=== PATIENT | male | born 1980 | race Caucasian/White ===

== ENCOUNTER 2020-05-14 11:19 | Outpatient (REF) | payer BC, SELFPAY | END 2020-05-14 11:20 | disposition home or self-care (01) | LOC: HO.LAB 11:19 | PROVIDERS: Visit Provider Internal Medicine | DX: Z20.828 Contact with and (suspected) exposure to other viral communicable diseases (principal) | CPT/HCPCS: U0003 ==

== ENCOUNTER 2020-07-02 12:30 | Emergency (ER) | payer OTHER, BC, SELFPAY ==
[2020-07-02 12:45] VITALS: BP 168/100; BP 180/100; PULSE 81; PULSE 90; RESP 18; TEMP 36.8; O2SAT 96; BMI 30.2
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
--- NOTE | 2020-07-02 13:11 | CT_ITS ---
EXAMINATION: CT BRAIN AND CT CERVICAL SPINE WITHOUT CONTRAST CLINICAL INFORMATION: Head injury. Headache COMPARISON: None TECHNIQUE: 5 mm thin axial and reformatted 2 mm thin sagittal coronal images of brain were obtained. Subsequently axial 3 mm thin and reformatted 2 mm thin sagittal and coronal images of cervical spine were obtained. DL [id number] FINDINGS: Brain: There is no acute intra-axial, extra-axial bleed, masses or midline shift. There is no acute infarction in evolution. The lateral ventricles are symmetrical in size and configuration without enlargement. The gonzalez to white matter differentiation is maintained. Bone windows reveal no calvarial abnormality. There is no scalp soft tissue abnormality. There is mild mucoperiosteal thickening bilateral posterior ethmoid and bilateral maxillary sinuses. Bilateral mastoid air cells are well-aerated. Cervical spine: Clinical diagnosis the vertebral heights, alignment and disc heights are normal. No visible acute fracture, dislocation or subluxation seen. The craniovertebral junction and the C1-C2 alignment is normal. The prevertebral and paravertebral soft tissues are normal. The airway is widely patent. The thyroid lobes are symmetrical. Bilateral submandibular and the parotid glands are symmetrical. The lung apices are clear. CT/CT cervical spine wo con IMPRESSION: No acute intracranial process seen. Mild straightening of cervical lordosis. No visible acute fracture, dislocation or subluxation seen.
[2020-07-02 14:00] VITALS: BP 138/84; PULSE 79; RESP 14; TEMP 36.8; O2SAT 94
[2020-07-02] MEDS: predniSONE 10 MG TABLET 50 MG PO (14:43)
[2020-07-02] MEDS: Fluticasone Propionate Nasal 16 GM SPRAY 2 SPRAY NOSTRIL-B (14:44)
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
[2020-07-02 16:00] VITALS: BP 157/101; PULSE 67; RESP 16; TEMP 36.6; O2SAT 3
[2020-07-02 16:07] LABS: MANUAL DIFF FLAG NO
[2020-07-02 16:08] LABS: Basophils Percent Auto 0.4 % (0-2); Eosinophils Absolute Auto 1.1 X10*3/uL (0.0-0.4); Hematocrit 38.7 % (42-52); Hemoglobin 12.1 g/dl (14.0-18.0); Imm Gran Abs Auto 0.02 X10*3/uL (0.00-0.03); Imm Gran Pct Auto 0.2 % (0.0-0.4); Lymphocytes Absolute Auto 1.3 X10*3/uL (1.2-4.9); Lymphocytes Percent Auto 15.5 % (20-40); Mean Corpuscular HGB Conc 31.3 g/dl (31.0-36.0); Mean Corpuscular Hemoglobin 26.9 pg (27.0-33.0); Mean Corpuscular Volume 86.2 fL (80-98); Mean Platelet Volume 9.8 fL (9.4-12.4); Monocytes Absolute Auto 0.5 X10*3/uL (0.1-1.2); Monocytes Percent Auto 6.1 % (2-11); Neutrophils Absolute Auto 5.4 X10*3/uL (2.0-8.3); Neutrophils Percent Auto 64.8 % (45-73); Platelet Count 199 X10*3/uL (160-400); Red Blood Count 4.49 X10*6/uL (4.60-5.80); Red Cell Distribution Width 14.5 % (11.0-16.0); White Blood Count 8.3 X10*3/uL (4.8-10.8)
[2020-07-02 16:16] VITALS: BP 173/102; PULSE 86; RESP 22; O2SAT 96
[2020-07-02 16:37] LABS: Anion Gap 7 (12-20); Blood Urea Nitrogen 14 mg/dL (9-16); C Reactive Protein 1.73 mg/dL (< or = 0.50); Calcium 8.9 mg/dL (8.4-10.2); Carbon Dioxide 37 mmol/L (22-29); Chloride 98 mmol/L (96-108); Creatinine Clr Calc Pharmacy 170.9; Estimated Glomerular Filt Rate > 60; Glucose Random 104 mg/dL (60-115); Potassium 4.3 mmol/l (3.3-5.1); Sodium 138 mmol/L (135-145)
[2020-07-02 16:43] LABS: Influenza A PCR NEGATIVE (Negative); Influenza B PCR NEGATIVE (Negative); Resp Syncy Virus RNA Qual PCR NEGATIVE (Negative); SARS COV2 PCR INHOUSE NEGATIVE (Negative)
[2020-07-02 16:57] LABS: Ferritin 50 ng/mL (20-250); Procalcitonin 0.02 ng/mL
--- NOTE | 2020-07-02 17:27 | PC.NURSE ---
walking pulse ox 90% on RA
--- NOTE | 2020-07-02 17:35 | PC.NURSE ---
PATIENT WENT FOR A SHORT WALK ,O2 SAT REMAIN AT 90 % DURING WALKING,FERNY AWARE.
== END 2020-07-02 17:39 | disposition home or self-care (01) ==
PROVIDERS: Physician Assistant; Emergency Provider Emergency Medicine; PCP Family Medicine
DX: S09.90XA Unspecified injury of head, initial encounter (principal); S30.0XXA Contusion of lower back and pelvis, initial encounter; S29.012A Strain of muscle and tendon of back wall of thorax, initial encounter; G44.309 Post-traumatic headache, unspecified, not intractable; J01.00 Acute maxillary sinusitis, unspecified; M54.2 Cervicalgia; J45.901 Unspecified asthma with (acute) exacerbation; V43.52XA Car driver injured in collision with other type car in traffic accident, initial encounter; Y93.9 Activity, unspecified; Y92.410 Unspecified street and highway as the place of occurrence of the external cause; Y99.9 Unspecified external cause status; Z79.899 Other long term (current) drug therapy
CPT/HCPCS: 0241U; 36415; 70450; 71045; 72125; 80048; 82728; 84145; 85025; 86140; 99284

== ENCOUNTER 2020-09-06 11:37 | Outpatient (REF) | payer BC, SELFPAY ==
--- NOTE | ~2020-09-06 | US_ITS ---
EXAMINATION: US VENOUS ULTRASOUND WITH DOPPLER LOWER EXTREMITY, BILATERAL CLINICAL INFORMATION: Pain, swelling. COMPARISON: None TECHNIQUE: Ultrasound of the deep veins is performed from the hip to the calf with compression sonography and color and pulse Doppler assessment. Spectral analysis with color-flow imaging is performed. FINDINGS: RIGHT: There is normal venous compression and respiratory variation and augmented flow. The visualized common femoral vein, superficial femoral vein, profunda femoral vein, popliteal vein, and the trifurcation region shows no evidence of deep venous thrombosis. There is no significant popliteal fossa cyst. Posterior tibial veins of the calf appear patent. Limited visualization of the peroneal veins in the calf. LEFT: There is normal venous compression and respiratory variation and augmented flow. The visualized common femoral vein, superficial femoral vein, profunda femoral vein, popliteal vein, and the trifurcation region shows no evidence of deep venous thrombosis. Posterior tibial veins in the calf appear patent. Limited visualization of the peroneal veins. There is no significant popliteal fossa cyst. If the patient's symptoms persist, followup ultrasound in 5-7 days might be of value to exclude proximal propagation from a non-visualized calf vein. ADDITIONAL FINDINGS: Left groin lymph node measuring 4.1 x 1.1 x 3.7 cm. (AP dimension 1.1 cm). There is fatty hilum present. US/US venous duplex LE BI IMPRESSION: No DVT demonstrated in the bilateral lower extremity extending from the common femoral vein to the popliteal vein. Partially visualized calf veins in bilateral lower extremities. If the patient's symptoms persist, followup ultrasound in 5-7 days might be of value to exclude proximal propagation from a non-visualized calf vein. Mildly prominent nonspecific left groin lymph node measuring 1.1 cm in AP dimension.
[2020-09-06 13:52] LABS: MANUAL DIFF FLAG NO
[2020-09-06 13:53] LABS: Basophils Percent Auto 0.5 % (0-2); Eosinophils Absolute Auto 0.7 X10*3/uL (0.0-0.4); Eosinophils Percent Auto 7.9 % (0-4); Hematocrit 39.7 % (42-52); Hemoglobin 12.9 g/dl (14.0-18.0); Imm Gran Abs Auto 0.01 X10*3/uL (0.00-0.03); Imm Gran Pct Auto 0.1 % (0.0-0.4); Lymphocytes Absolute Auto 1.7 X10*3/uL (1.2-4.9); Lymphocytes Percent Auto 20.2 % (20-40); Mean Corpuscular HGB Conc 32.5 g/dl (31.0-36.0); Mean Corpuscular Hemoglobin 28.8 pg (27.0-33.0); Mean Corpuscular Volume 88.6 fL (80-98); Mean Platelet Volume 10.3 fL (9.4-12.4); Monocytes Absolute Auto 0.5 X10*3/uL (0.1-1.2); Monocytes Percent Auto 6.6 % (2-11); Neutrophils Absolute Auto 5.3 X10*3/uL (2.0-8.3); Neutrophils Percent Auto 64.7 % (45-73); Platelet Count 253 X10*3/uL (160-400); Red Blood Count 4.48 X10*6/uL (4.60-5.80); Red Cell Distribution Width 13.5 % (11.0-16.0); White Blood Count 8.2 X10*3/uL (4.8-10.8)
[2020-09-06 14:39] LABS: Alanine Aminotransferase 31 U/L (0-40); Albumin Level 4.4 g/dL (3.5-5.0); Alkaline Phosphatase 126 U/L (39-117); Anion Gap 13 (12-20); Aspartate Amino Transferase 28 U/L (5-37); Bilirubin Total 0.4 mg/dL (0.0-1.0); Blood Urea Nitrogen 12 mg/dL (9-16); Calcium 8.9 mg/dL (8.4-10.2); Carbon Dioxide 30 mmol/L (22-29); Chloride 102 mmol/L (96-108); Estimated Glomerular Filt Rate > 60; Glucose Random 121 mg/dL (60-115); Potassium 4.2 mmol/L (3.3-5.1); Sodium 141 mmol/L (135-145); Total Protein 7.3 g/dL (6.5-8.0)
== END 2020-09-06 11:38 | disposition home or self-care (01) ==
LOC: HO.HMGCX 11:37
PROVIDERS: PCP Family Medicine; Visit Provider Family Medicine
DX: R60.0 Localized edema (principal); M79.89 Other specified soft tissue disorders
CPT/HCPCS: 36415; 80053; 85025; 93970

== ENCOUNTER 2020-09-23 14:02 | Outpatient (REF) | payer BC, SELFPAY ==
--- NOTE | ~2020-09-23 | US_ITS ---
EXAMINATION: US VENOUS ULTRASOUND WITH DOPPLER LOWER EXTREMITY, BILATERAL CLINICAL INFORMATION: Bilateral leg swelling COMPARISON: None TECHNIQUE: Ultrasound of the deep veins is performed from the hip to the calf with compression sonography and color and pulse Doppler assessment. Spectral analysis with color-flow imaging is performed. FINDINGS: RIGHT: There is normal venous compression and respiratory variation and augmented flow. The visualized common femoral vein, superficial femoral vein, profunda femoral vein, popliteal vein, and the trifurcation region shows no evidence of deep venous thrombosis. There is no significant popliteal fossa cyst. LEFT: There is normal venous compression and respiratory variation and augmented flow. The visualized common femoral vein, superficial femoral vein, profunda femoral vein, popliteal vein, and the trifurcation region shows no evidence of deep venous thrombosis. There is no significant popliteal fossa cyst. If the patient's symptoms persist, followup ultrasound in 5 days 7 days might be of value to exclude proximal propagation from a non-visualized calf vein. US/US venous duplex LE BI IMPRESSION: No DVT demonstrated in the bilateral lower extremity.
== END 2020-09-23 14:03 | disposition home or self-care (01) ==
LOC: HO.HMGCX 14:02
PROVIDERS: PCP Family Medicine; Visit Provider Family Medicine
DX: M79.89 Other specified soft tissue disorders (principal)
CPT/HCPCS: 93970

== ENCOUNTER 2020-09-30 12:37 | Outpatient (REF) | payer BC, SELFPAY ==
[2020-09-30 14:39] LABS: B Type Natriuretic Peptide 38 pg/mL (<100)
[2020-09-30 14:46] LABS: Alanine Aminotransferase 34 U/L (0-40); Albumin Level 3.9 g/dL (3.5-5.0); Alkaline Phosphatase 115 U/L (39-117); Anion Gap 12 (12-20); Aspartate Amino Transferase 27 U/L (5-37); Bilirubin Total 0.5 mg/dL (0.0-1.0); Blood Urea Nitrogen 12 mg/dL (9-16); Calcium 8.7 mg/dL (8.4-10.2); Carbon Dioxide 35 mmol/L (22-29); Chloride 97 mmol/L (96-108); Estimated Glomerular Filt Rate > 60; Glucose Random 122 mg/dL (60-115); Sodium 140 mmol/L (135-145); Total Protein 6.4 g/dL (6.5-8.0)
== END 2020-09-30 12:38 | disposition home or self-care (01) ==
LOC: HO.WFDLDS 12:37
PROVIDERS: Visit Provider Family Medicine
DX: I50.9 Heart failure, unspecified (principal); R60.0 Localized edema
CPT/HCPCS: 36415; 80053; 83880

== ENCOUNTER → 2020-10-03 09:45 | Outpatient (BNVA) | payer BC, SELFPAY | PROVIDERS: PCP Family Medicine; Visit Provider Surgery Vascular Surgery ==

== ENCOUNTER 2020-10-09 10:32 | Outpatient (REF) | payer BC, SELFPAY ==
--- NOTE | ~2020-10-09 | US_ITS ---
EXAMINATION: US VENOUS ULTRASOUND WITH DOPPLER LOWER EXTREMITY, BILATERAL CLINICAL INFORMATION: Swelling COMPARISON: None TECHNIQUE: Ultrasound of the deep veins is performed from the hip to the calf with compression sonography and color and pulse Doppler assessment. Spectral analysis with color-flow imaging is performed. FINDINGS: RIGHT: There is normal venous compression and respiratory variation and augmented flow. The visualized common femoral vein, superficial femoral vein, profunda femoral vein, popliteal vein, and the trifurcation region shows no evidence of deep venous thrombosis. There is no significant popliteal fossa cyst. There is soft tissue swelling subcutaneous edema. LEFT: There is normal venous compression and respiratory variation and augmented flow. The visualized common femoral vein, superficial femoral vein, profunda femoral vein, popliteal vein, and the trifurcation region shows no evidence of deep venous thrombosis. There is no significant popliteal fossa cyst. There is soft tissue swelling subcutaneous edema. If the patient's symptoms persist, followup ultrasound in 5 days 7 days might be of value to exclude proximal propagation from a non-visualized calf vein. US/US venous duplex LE BI IMPRESSION: No DVT demonstrated in the both lower extremities. There is diffuse bilateral soft tissue swelling subcutaneous edema.
== END 2020-10-09 10:33 | disposition home or self-care (01) ==
LOC: HO.US 10:32
PROVIDERS: Visit Provider Surgery Vascular Surgery
DX: I83.12 Varicose veins of left lower extremity with inflammation (principal); I83.893 Varicose veins of bilateral lower extremities with other complications
CPT/HCPCS: 93970

== ENCOUNTER → 2020-10-25 09:37 | Outpatient (BNVA) | payer BC, SELFPAY | PROVIDERS: PCP Family Medicine; Visit Provider Surgery Vascular Surgery ==